=== PATIENT | male | born 1955 | race Caucasian/White ===

== ENCOUNTER 2022-10-23 01:45 | Emergency (ER) | payer MEDICARE ==
[~2022-10-23] VITALS: Ht 190.5 cm; Wt 86.2 kg
[2022-10-23] MEDS ORDERED: ONDANSETRON 4 MG/2 ML VIAL ONE (02:07)
[2022-10-23] MEDS ORDERED: IV NORMAL SALINE 500 ML BAG IV ONE (02:15)
[2022-10-23] MEDS ORDERED: ONDANSETRON 4 MG/2 ML VIAL IV ONE (02:15)
[2022-10-23 02:26] LABS: BASOPHILS % (AUTO) 0.4 % (0.0-2.0); EOSINOPHILS % (AUTO) 0.1 % (0.0-7.0); HEMATOCRIT 40.6 % (36.7-47.1); HEMOGLOBIN 13.9 g/dL (12.5-16.3); LYMPHOCYTES # (AUTO) 0.5 K/uL (0.8-4.8); LYMPHOCYTES % (AUTO) 8.4 % (20.5-51.5); MEAN CORPUSCULAR HEMOGLOBIN 28.9 uug (23.8-33.4); MEAN CORPUSCULAR HGB CONC 34 g/dL (32.5-36.3); MEAN CORPUSCULAR VOLUME 84.4 fL (73.0-96.2); MONOCYTES # (AUTO) 0.8 K/uL (0.1-1.30); MONOCYTES % (AUTO) 12.9 % (0.0-11.0); NEUTROPHILS # (AUTO) 5.1 K/uL (1.8-8.9); NEUTROPHILS % (AUTO) 78.2 % (38.5-71.5); PLATELET COUNT (AUTO) 175 K/uL (152-348); RED BLOOD CELL COUNT(AUTO) 4.81 MIL/uL (4.06-5.63); RED CELL DISTRIBUTION WIDTH 13.6 % (12.1-16.2); WHITE BLOOD COUNT (AUTO) 6.6 K/uL (3.6-10.2)
[2022-10-23 02:39] LABS: CALCIUM 8.6 mg/dL (8.5-10.1); CARBON DIOXIDE 29 mmol/L (21-32); CHLORIDE 100 mmol/L (98-107); GLUCOSE 116 mg/dL (74-106); POTASSIUM 3.7 mmol/L (3.5-5.1); SODIUM SERUM 138 mmol/L (136-145); UREA NITROGEN, BLOOD 13 mg/dL (7-18)
[2022-10-23 02:51] LABS: ALANINE AMINOTRANSFERASE 33 U/L (16-63); ALKALINE PHOSPHATASE < 10 U/L (50-136); ASPARTATE AMINOTRANSFERASE 26 U/L (15-37); BILIRUBIN,TOTAL 0.7 mg/dL (0.2-1.0); NT-PRO BNP 371 pg/mL (0-125); TOTAL PROTEIN, SERUM 7.5 g/dL (6.4-8.2)
[2022-10-23] MEDS ORDERED: IOHEXOL 350 100 ML INFUS..BTL ONE (02:57)
[2022-10-23] MEDS ORDERED: SWABABLE VALVE TRANSFER SET EA MC ONE (02:58)
[2022-10-23] MEDS ORDERED: IV NORMAL SALINE 250 ML IV ONE (02:58)
[2022-10-23 05:19] VITALS: BP 129/74; TEMP 98; O2SAT 98
== END 2022-10-23 05:20 | disposition home or self-care (01) ==
LOC: ER 01:52
DX: U07.1 COVID-19 (principal); E78.00 Pure hypercholesterolemia, unspecified
CPT/HCPCS: 99285; 96374; 71275; 96361; 87426; 80053; 83880; 85025; 85379; 84484; 36415; 93005; J2405; Q9967; J7040; A4663